=== PATIENT | female | born 1985 | race Caucasian/White ===

== ENCOUNTER 2020-12-27 11:12 | Outpatient (CLI) | payer BC | END 2020-12-27 23:59 | disposition home or self-care (01) | LOC: US 11:12 | DX: D25.1 Intramural leiomyoma of uterus (principal); N83.201 Unspecified ovarian cyst, right side; N85.4 Malposition of uterus; Z98.890 Other specified postprocedural states; Z88.1 Allergy status to other antibiotic agents | CPT/HCPCS: 76856-TC ==